=== PATIENT | female | born 1990 | race Caucasian/White ===

== ENCOUNTER → 2017-04-26 | Emergency (ER) | payer OTHER ==
[~2017-04-26] VITALS: Ht 172.7 cm; Wt 86.2 kg
[~2017-04-26] MED LIST: ACETAMINOPHEN-1 EAC1 PO; BACTRIM DS TAB1 EACH PO; CYCLOBENZAPRINE10 MG PO; IBUPROFEN600 MG PO; IBUPROFEN800 MG PO; LIDOCAINE30 G TOP; LIDODERM700 MG TOP; NAPROXEN500 MG PO; NORCO 5-325 TA1 EACH PO; NUVARING VAGIN1 EACH VAGINAL; PRENATAL VITAM1 EAC3 PO; PROMETHAZINE HC25 M1 PO; ROBAXIN-750750 MG PO; TRAMADOL HCL50 MG PO; VITAFOL-OB+DHA1 EACH; ZOFRAN ODT4 MG PO; ZOFRAN ODT4 MG SL
== END ==
LOC: ED 12:30
DX: S93.601A Unspecified sprain of right foot, initial encounter (principal); F17.200 Nicotine dependence, unspecified, uncomplicated; W10.9XXA Fall (on) (from) unspecified stairs and steps, initial encounter
CPT/HCPCS: 73610; 73630; 99283

== ENCOUNTER 2017-07-06 17:25 | Emergency (ER) | payer OTHER ==
[~2017-07-06] VITALS: Ht 172.7 cm; Wt 79.4 kg
[~2017-07-06 17:25] MED LIST changes: -ACETAMINOPHEN-1 EAC1 PO; -NAPROXEN500 MG PO; -NUVARING VAGIN1 EACH VAGINAL; -ZOFRAN ODT4 MG PO
[2017-07-06] MEDS ORDERED: NUVARING VAGIN1 EACH VAGINAL (17:51)
[2017-07-06] MEDS ORDERED: ZOFRAN ODT4 MG PO (20:31)
[2017-07-06] MEDS ORDERED: TRAMADOL HCL50 MG PO (20:31)
== END 2017-07-06 20:42 | disposition home or self-care (01) ==
LOC: ED 17:25
DX: R10.32 Left lower quadrant pain (principal); F17.200 Nicotine dependence, unspecified, uncomplicated
CPT/HCPCS: 76830; 76856; 80053; 81001; 83690; 84703; 85025; 96361; 96374; 96375; 96376; 99284; J1170; J2405; J7030

== ENCOUNTER 2017-09-07 18:27 | Emergency (ER) | payer OTHER ==
[~2017-09-07] VITALS: Ht 172.7 cm; Wt 79.4 kg
[~2017-09-07 18:27] MED LIST changes: +NUVARING VAGIN1 EACH VAGINAL; +ZOFRAN ODT4 MG PO
[2017-09-07] MEDS ORDERED: NAPROXEN500 MG PO (20:17)
[2017-09-07] MEDS ORDERED: ACETAMINOPHEN-1 EAC1 PO (20:17)
== END 2017-09-07 20:25 | disposition home or self-care (01) ==
LOC: ED 18:27
DX: R07.89 Other chest pain (principal); F17.200 Nicotine dependence, unspecified, uncomplicated
CPT/HCPCS: 71101; 84703; 99283

== ENCOUNTER 2017-09-09 15:05 | Emergency (ER) | payer OTHER ==
[~2017-09-09] VITALS: Ht 172.7 cm; Wt 79.4 kg
[~2017-09-09 15:05] MED LIST changes: +ACETAMINOPHEN-1 EAC1 PO; +NAPROXEN500 MG PO
[2017-09-09] MEDS ORDERED: NORCO 5-325 TA1 EACH PO (16:06)
== END 2017-09-09 16:21 | disposition home or self-care (01) ==
LOC: ED 15:05
DX: S22.32XD Fracture of one rib, left side, subsequent encounter for fracture with routine healing (principal); F17.200 Nicotine dependence, unspecified, uncomplicated; Z79.899 Other long term (current) drug therapy; W19.XXXD Unspecified fall, subsequent encounter
CPT/HCPCS: 99283

== ENCOUNTER 2017-10-20 09:29 | Emergency (ER) | payer OTHER ==
[~2017-10-20] VITALS: Ht 172.7 cm; Wt 77.1 kg
[2017-10-20] MEDS ORDERED: PROMETHAZINE HC25 M1 PO (13:22)
[2017-10-20] MEDS ORDERED: NORCO 5-325 TA1 EACH PO (13:22)
== END 2017-10-20 13:59 | disposition home or self-care (01) ==
LOC: ED 09:29
PROC: 2W3CX1Z Immobilization of Right Lower Arm using Splint (ICD-10-PCS; principal; 2017-10-20)
DX: O9A.211 Injury, poisoning and certain other consequences of external causes complicating pregnancy, first trimester (principal); S52.501A Unspecified fracture of the lower end of right radius, initial encounter for closed fracture; S90.32XA Contusion of left foot, initial encounter; O99.331 Smoking (tobacco) complicating pregnancy, first trimester; F17.200 Nicotine dependence, unspecified, uncomplicated; Z79.899 Other long term (current) drug therapy; W18.30XA Fall on same level, unspecified, initial encounter; Z3A.01 Less than 8 weeks gestation of pregnancy
CPT/HCPCS: 29125; 73130; 73630; 84703; 99283

== ENCOUNTER 2017-10-27 07:52 | Emergency (ER) | payer OTHER ==
[~2017-10-27] VITALS: Ht 172.7 cm; Wt 74.8 kg
== END 2017-10-27 10:04 | disposition home or self-care (01) ==
LOC: ED 07:52
DX: O03.9 Complete or unspecified spontaneous abortion without complication (principal); F17.200 Nicotine dependence, unspecified, uncomplicated
CPT/HCPCS: 76801; 76817; 81001; 84702; 85025; 87088; 99284

== ENCOUNTER 2018-12-19 09:58 | Emergency (ER) | payer OTHER ==
[~2018-12-19] VITALS: Ht 175.3 cm; Wt 81.7 kg
--- OUTSIDE RECORDS SUMMARY | 2018-12-19 10:24 | XMS ---
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 EAngel Luis VISIT COUNT (12 MO.) 1 [facility] TOTAL 1 NOTE: Visits indicate total known visits. ED/UCC VISIT TRACKING (12 MO.) 12/19/2018 09:[address] [facility] TYPE: Emergency COMPLAINT: - FLU LIKE SYMPTOMS INPATIENT VISIT TRACKING (12 MO.) No inpatient visits to display in this time frame [id number]
[2018-12-19] MEDS ORDERED: TYLENOL WITH C1 EACH PO (10:30)
[2018-12-19] MEDS ORDERED: ZOFRAN4 MG PO (10:30)
== END 2018-12-19 10:45 | disposition home or self-care (01) ==
LOC: ED 09:58
DX: J11.1 Influenza due to unidentified influenza virus with other respiratory manifestations (principal); F17.200 Nicotine dependence, unspecified, uncomplicated
CPT/HCPCS: 99283

== ENCOUNTER 2019-02-10 08:24 | Emergency (ER) | payer OTHER ==
[~2019-02-10] VITALS: Ht 175.3 cm; Wt 86.2 kg
[~2019-02-10 08:24] MED LIST changes: +TYLENOL WITH C1 EACH PO; +ZOFRAN4 MG PO
[2019-02-10] MEDS ORDERED: PROVENTIL HFA6.7 GM INH (10:27)
[2019-02-10] MEDS ORDERED: NORCO 5-325 TA1 EACH PO (10:27)
[2019-02-10] MEDS ORDERED: ZITHROMAX250 MG PO (10:27)
[2019-02-10] MEDS ORDERED: PREDNISONE20 MG PO (10:27)
== END 2019-02-10 10:45 | disposition home or self-care (01) ==
LOC: ED 08:24
DX: J40 Bronchitis, not specified as acute or chronic (principal); R07.89 Other chest pain; F17.200 Nicotine dependence, unspecified, uncomplicated
CPT/HCPCS: 71046; 80053; 85025; 85379; 96372; 99285-25; J1885

== ENCOUNTER 2019-11-19 09:25 | Emergency (ER) | payer OTHER ==
[~2019-11-19] VITALS: Ht 175.3 cm; Wt 90.7 kg
[~2019-11-19 09:25] MED LIST changes: +PREDNISONE20 MG PO; +PROVENTIL HFA6.7 GM INH; +ZITHROMAX250 MG PO
[2019-11-19] MEDS ORDERED: FLUOXETINE HCL10 M1 PO (09:35)
== END 2019-11-19 13:13 | disposition home or self-care (01) ==
LOC: ED 09:25
DX: M54.5 Low back pain (principal); M54.2 Cervicalgia; F17.200 Nicotine dependence, unspecified, uncomplicated; Z79.899 Other long term (current) drug therapy
CPT/HCPCS: 70450; 72125; 72131; 72192; 80048; 84703; 85025; 96374; 96376; 99284-25; 99406; J1885; J3010

== ENCOUNTER 2021-06-16 01:06 | Inpatient (IN) | payer OTHER ==
[~2021-06-16] VITALS: Ht 172.7 cm; Wt 96.9 kg
[~2021-06-16 01:06] MED LIST changes: +FLUOXETINE HCL10 M1 PO
[2021-06-24] MEDS ORDERED: HYDROXYZINE PAM25 MG PO (16:41)
[2021-06-24] MEDS ORDERED: LEVOTHYROXINE25 MCG PO (16:41)
[2021-06-24] MEDS ORDERED: VITAMIN B-121000 MCG PO (16:41)
[2021-06-24] MEDS ORDERED: VITAMIN D325 MC2 PO (16:43)
== END 2021-06-24 17:25 | disposition home or self-care (01) | DRG 880 ==
LOC: ED 01:06 → CCU 06:25 → MS 06:25
PROVIDERS: ADMIT Internal Medicine; ATTEND Internal Medicine
PROC: 009U3ZX Drainage of Spinal Canal, Percutaneous Approach, Diagnostic (ICD-10-PCS; principal; 2021-06-16)
DX: F44.4 Conversion disorder with motor symptom or deficit (principal); F41.9 Anxiety disorder, unspecified; Z20.822 Contact with and (suspected) exposure to COVID-19; E03.9 Hypothyroidism, unspecified; D64.9 Anemia, unspecified; G89.29 Other chronic pain; M54.5 Low back pain; E86.0 Dehydration; Z53.29 Procedure and treatment not carried out because of patient's decision for other reasons; M51.36 Other intervertebral disc degeneration, lumbar region; F32.9 Major depressive disorder, single episode, unspecified; F17.200 Nicotine dependence, unspecified, uncomplicated; E87.6 Hypokalemia; Z98.890 Other specified postprocedural states
CPT/HCPCS: 36600; 51702; 62270; 70450; 71045; 72158; 74177; 80048; 80053; 81001; 82553; 82803; 82945; 83605; 83690; 83735; 84100; 84157; 84443; 84703; 85007; 85025; 87040; 87502; 89051; 97110; 97116; 97162; 97167; 97530; 97535; 99285-25; A9577; C9113; C9803; G0480; J0696; J1170; J1650; J1885; J2060; J2405; J3411; J3475; J3480; J7030; J7040; J7060; J7121; Q0177; Q9967; U0003

== ENCOUNTER 2021-07-09 14:54 | Emergency (ER) | payer OTHER ==
[~2021-07-09] VITALS: Ht 172.7 cm; Wt 96.6 kg
[~2021-07-09 14:54] MED LIST changes: +HYDROXYZINE PAM25 MG PO; +LEVOTHYROXINE25 MCG PO; +VITAMIN B-121000 MCG PO; +VITAMIN D325 MC2 PO
--- OUTSIDE RECORDS SUMMARY | 2021-07-09 15:00 | XMS ---
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 ED/UCC VISIT TRACKING (12 MO.) 07/09/2021 14:54 [facility] TYPE: Emergency COMPLAINT: - WEAKNESS 06/16/2021 01:07 [facility] TYPE: Emergency COMPLAINT: - WEAKNESS INPATIENT VISIT TRACKING (12 MO.) 06/16/2021 06:25 [facility] TYPE: [facility] COMPLAINT: - SEPSIS DIAGNOSES: - Dehydration - Conversion disorder with motor symptom or deficit - Nicotine dependence, unspecified, uncomplicated - Low back pain - Dehydration - Anemia, unspecified - Major depressive disorder, single episode, unspecified - Other specified postprocedural states - Anxiety disorder, unspecified - Hypokalemia - Other chronic pain - Procedure and treatment not carried out because of patient's decision for other reasons - Major depressive disorder, single episode, unspecified - Hypothyroidism, unspecified - Other intervertebral disc degeneration, lumbar region - Other chronic pain - Other intervertebral disc degeneration, lumbar region - Conversion disorder with motor symptom or deficit - Procedure and treatment not carried out because of patient's decision for other reasons - Weakness - Anxiety disorder, unspecified - Low back pain - Hypokalemia - Anemia, unspecified - Hypothyroidism, unspecified - Other specified postprocedural states - Nicotine dependence, unspecified, uncomplicated [id number]
[2021-07-09] MEDS ORDERED: NEURONTIN300 MG PO (17:27)
== END 2021-07-09 18:28 | disposition home or self-care (01) ==
LOC: ED 14:54
DX: G62.9 Polyneuropathy, unspecified (principal); F10.20 Alcohol dependence, uncomplicated; Z79.899 Other long term (current) drug therapy; F17.200 Nicotine dependence, unspecified, uncomplicated
CPT/HCPCS: 71045; 72141; 80053; 81001; 83605; 85025; 96374; 99284-25; G0480; J3411; J7030

== ENCOUNTER 2025-08-19 13:35 | Emergency (ER) | payer OTHER ==
[~2025-08-19] VITALS: Ht 172.7 cm; Wt 115.0 kg
[~2025-08-19 13:35] MED LIST changes: +NEURONTIN300 MG PO
[2025-08-19] MEDS ORDERED: HYDROCODONE/ACETA 5/325 TAB PO ONE (14:30)
[2025-08-19] MEDS ORDERED: HYDROCODON-ACE1 EA10 PO (18:44)
[2025-08-19 19:07] VITALS: BP 128/87
== END 2025-08-19 19:05 | disposition home or self-care (01) ==
LOC: ED 13:35
DX: S92.065A Nondisplaced intraarticular fracture of left calcaneus, initial encounter for closed fracture (principal); F17.200 Nicotine dependence, unspecified, uncomplicated; X50.0XXA Overexertion from strenuous movement or load, initial encounter
CPT/HCPCS: 73590; 73610; 73700; 99284-25